=== PATIENT | male | born 1990 | race Caucasian/White ===

== ENCOUNTER 2016-11-03 21:03 | Emergency (ER) | payer OTHER ==
[~2016-11-03] VITALS: Ht 175.3 cm; Wt 78.0 kg
[~2016-11-03 21:03] MED LIST: MELO15TA2 PO; SULF1TAB47 PO; TRAM50 PO; Z.0.NO CURRENT MEDS
[2016-11-03 21:06] VITALS: BP 125/75; PULSE 75; RESP 16; TEMP 98.6; O2SAT 100
--- NOTE | 2016-11-03 21:37 | PD ---
Physical Exam Date Seen by Provider: Nov 03, 2016 Time Seen by Provider: 21:33 Narrative 25 y/o male with Hx of Head injury last evening that he doesnt remember. LOC unknown. Has 9/10 SINGH, confusion, increased dizziness and hypersomnolence. Vomiting x 3 today. Denies Smoking, Etoh or drug use. Fiance' states "eyes twitching all day". V/S stable Awaiting med bed placement. Data Data Last Documented VS Vital Signs Date Time Temp Pulse Resp B/P Pulse Ox O2 Delivery O2 Flow Rate FiO2 11/03/16 21:06 98.6 75 16 125/75 100 MDM Medical Record Reviewed: Yes Supervised Visit with RASHID: Yes Condition: Stable Mohit Frost Nov 03, 2016 21:37
[2016-11-03] MEDS ORDERED: SODIUM CHLOR 0.9% 1000 ML INJ 1,000 ML IV ONE (22:00)
[2016-11-03] MEDS ORDERED: ONDANSETRON HCL 4 MG/2 ML VIAL IV PUSH ONE (22:00)
--- NOTE | 2016-11-03 22:02 | PD ---
HPI Chief Complaint: Head Injury Time Seen by Provider: 22:01 Travel History International Travel<30 days: No Contact w/Intl Traveler<30days: No Traveled to known affect area: No History of Present Illness HPI 25-year-old male presents to the emergency department stating please he had a head injury last night. Patient states he went to a [place] wedding yesterday. He did not return until this morning. He states he remembers the beginning of the wedding, does not remember anything else. He states he remembers driving home and getting home. His fianc says that she was worried because he did not return home until this morning. She states that he has not been acting right, being more lethargic than normal. He has vomited 3 today. She also states he has a nystagmus of his eyes. The patient does have a small abrasion to upper forehead that looks old, however, the fianc says he did not leave with this abrasion. Patient states his vision appears to be more blurry than normal. He does report some upper neck pain. No back pain. No chest pain or abdominal pain. No constipation or diarrhea. He reports no chronic medical problems and takes no prescribed medications. [facility] Past Medical History Asthma: Yes Immunizations Current: No Tetanus Vaccination: < 5 Years Influenza Vaccination: No Past Surgical History Surgical History: No Previous Surgery Social History Alcohol Use: Yes (OCCASIONALLY) Tobacco Use: No Substance Use: No Allergies-Medications (Allergen,Severity, Reaction): Coded Allergies: Morphine (Verified Allergy, Severe, Hives, 01/25/12) Reported Meds & Prescriptions Reported Meds & Active Scripts Active No Active Prescriptions or Reported Medications Review of Systems Except as stated in HPI: all other systems reviewed are Neg Physical Exam Narrative GENERAL: Well-nourished, well-developed male patient, afebrile. SKIN: Focused skin assessment warm/dry. Small healing abrasion to upper mid forehead. HEAD: Normocephalic. ENT: Mucosa pink and moist. No erythema or exudates. No uvular edema. No uvular , palatal, or tonsillar deviation. Airway patent. Nasal turbinates appear normal without nasal blood, purulent drainage or septal hematoma. Bilateral tympanic membranes are clear without erythema or perforation. EYES: No scleral icterus. No injection or drainage. PERRLA. NECK: Supple, trachea midline. No JVD or lymphadenopathy. CARDIOVASCULAR: Regular rate and rhythm without murmurs, gallops, or rubs. RESPIRATORY: Breath sounds equal bilaterally. No accessory muscle use. Lungs sounds are clear to auscultation. GASTROINTESTINAL: Abdomen soft, non-tender, nondistended. MUSCULOSKELETAL: No cyanosis, or edema. Bilateral upper and lower extremity strength 5/5. All extremities are neurovascularly intact. BACK: No obvious deformity. No CVA tenderness. Patient has tenderness over midline cervical spine. Data Data Last Documented VS Vital Signs Date Time Temp Pulse Resp B/P Pulse Ox O2 Delivery O2 Flow Rate FiO2 11/03/16 21:06 98.6 75 16 125/[address] Brain W/O Iv Contrast(Rout) (11/03/16 21:37) Iv Access Insert/Monitor (11/03/16 21:59) Ct Cerv Spine W/O Contrast (11/03/16 ) Apply Cervical Collar (11/03/16 22:00) Complete Blood Count With Diff (11/03/16 22:00) Comprehensive Metabolic Panel (11/03/16 22:00) Prothrombin Time / Inr (Pt) (11/03/16 22:00) Act Partial Throm Time (Ptt) (11/03/16 22:00) Sodium Chlor 0.9% 1000 Ml Inj (Ns 1000 M (11/03/16 22:00) Ondansetron Inj (Zofran Inj) (11/03/16 22:00) Drug Screen, Random Urine (11/03/16 22:02) Alcohol (Ethanol) (11/03/16 22:20) Labs Laboratory Tests Test 11/03/16 22:20 White Blood Count 7.4 TH/MM3 Red Blood Count 4.96 MIL/MM3 Hemoglobin 14.8 GM/DL Hematocrit 42.3 % Mean Corpuscular Volume 85.3 FL Mean Corpuscular Hemoglobin 29.8 PG Mean Corpuscular Hemoglobin 35.0 % Concent Red Cell Distribution Width 13.0 % Platelet Count 181 TH/MM3 Mean Platelet Volume 9.0 FL Neutrophils (%) (Auto) 63.1 % Lymphocytes (%) (Auto) 23.8 % Monocytes (%) (Auto) 8.9 % Eosinophils (%) (Auto) 4.0 % Basophils (%) (Auto) 0.2 % Neutrophils # (Auto) 4.7 TH/MM3 Lymphocytes # (Auto) 1.8 TH/MM3 Monocytes # (Auto) 0.7 TH/MM3 Eosinophils # (Auto) 0.3 TH/MM3 Basophils # (Auto) 0.0 TH/MM3 CBC Comment DIFF FINAL Differential Comment MDM Medical Decision Making Medical Screen Exam Complete: Yes Emergency Medical Condition: Yes Medical Record Reviewed: Yes Interpretation(s) Ct of the cervical spine - CONCLUSION: Unremarkable study. CT of the head - CONCLUSION: Unremarkable study. Differential Diagnosis Closed head injury versus intracranial abnormality versus concussion versus electrolyte abnormality versus alcohol intoxication Narrative Course 25 year old male presents to the emergency department reporting dizziness, loss of memory from last night, vomiting 3. He believes he had head trauma last night, but does not remember. He apparently went to a wedding yesterday and arrived home this morning. CBC, CMP, PTT, PTT/INR, alcohol level, urine drug screen ordered and pending. Cervical collar is applied. CT of the brain and cervical spine are ordered and pending. CBC is unremarkable. CT of the brain is unremarkable. CT of the cervical spine is unremarkable. My attending physician, Dr. Garay, will resume care and disposition of patient. Scripts No Active Prescriptions or Reported Meds Condition: Stable Monica Purcell [place] Nov 03, 2016 22:02
--- NOTE | 2016-11-03 22:16 | RADRPT ---
EXAM DATE/TIME: 11/03/2016 22:05 [facility] COMPARISON: No previous studies available for comparison. INDICATIONS : Contusion. Laceration to forehead. RADIATION DOSE: 36.79 CTDIvol (mGy) MEDICAL HISTORY : Asthma. SURGICAL HISTORY : None. ENCOUNTER: Initial ACUITY: 1 day PAIN SCALE: 7/10 LOCATION: cranial TECHNIQUE: Multiple contiguous axial images were obtained of the head. Using automated exposure control and adj ustment of the mA and/or kV according to patient size, radiation dose was kept as low as reasonably a chievable to obtain optimal diagnostic quality images. FINDINGS: There is no evidence for intracranial hemorrhage, mass effect, mass lesions, edema, or extra-axial fl uid collections. The visualized bony structures appear intact. The ventricles are normal size for t he patient's age. There are no signs of acute infarction for technique. CONCLUSION: Unremarkable study. Nela Gonzalez MD on November 03, 2016 at 22:13 Board Certified Radiologist. This report was verified electronically.
--- NOTE | 2016-11-03 22:31 | RADRPT ---
EXAM DATE/TIME: 11/03/2016 22:05 [facility] COMPARISON: CT CERVICAL SPINE W/O CONTRAST W 3D RECON, January 25, 2012, 12:33. INDICATIONS : Fall, Laceration to forehead. RADIATION DOSE: 21.55 CTDIvol (mGy) MEDICAL HISTORY : Asthma. SURGICAL HISTORY : None. ENCOUNTER: Initial ACUITY: 1 day PAIN SCALE: 2/10 LOCATION: neck TECHNIQUE: Volumetric scanning of the cervical spine was performed. Multiplanar reconstructions in the sagittal, coronal and oblique axial planes were performed. Using automated exposure control and adjustment o f the mA and/or kV according to patient size, radiation dose was kept as low as reasonably achievable to obtain optimal diagnostic quality images. FINDINGS: No significant subluxation or soft tissue swelling is seen. No definite fracture is seen for techniqu e. C2-C3: No appreciable compromised to the thecal sac, exiting nerve roots are seen. The neural jamaal eric are patent bilaterally. No appreciable thecal sac stenosis is seen. C3-C4: No appreciable compromised to the thecal sac, exiting nerve roots are seen. The neural jamaal eric are patent bilaterally. No appreciable thecal sac stenosis is seen. C4-C5: No appreciable compromised to the thecal sac, exiting nerve roots are seen. The neural jamaal eric are patent bilaterally. No appreciable thecal sac stenosis is seen. C5-C6: No appreciable compromised to the thecal sac, exiting nerve roots are seen. The neural jamaal eric are patent bilaterally. No appreciable thecal sac stenosis is seen. C6-C7: No appreciable compromised to the thecal sac, exiting nerve roots are seen. The neural jamaal eric are patent bilaterally. No appreciable thecal sac stenosis is seen. C7-T1: No appreciable compromised to the thecal sac, exiting nerve roots are seen. The neural jamaal eric are patent bilaterally. No appreciable thecal sac stenosis is seen CONCLUSION: Unremarkable study. Nela Gonzalez MD on November 03, 2016 at 22:27 Board Certified Radiologist. This report was verified electronically.
[2016-11-03 22:42] LABS: AUTOMATED NEUTROPHIL # 4.7 TH/MM3 (1.8-7.7); BASOPHIL % 0.2 % (0.0-2.0); EOSINOPHIL # 0.3 TH/MM3 (0-0.4); HEMATOCRIT 42.3 % (39.0-51.0); HEMO FLAGS DIFF FINAL; LYMPH % 23.8 % (9.0-44.0); LYMPHOCYTE # 1.8 TH/MM3 (1.0-4.8); MEAN CELL VOLUME 85.3 FL (80.0-100.0); MEAN CORPUSCULAR HEMOGLOBIN 29.8 PG (27.0-34.0); MONO % 8.9 % (0.0-8.0); NEUT % 63.1 % (16.0-70.0); PLATELET COUNT 181 TH/MM3 (150-450); RED BLOOD COUNT 4.96 MIL/MM3 (4.50-5.90); WHITE BLOOD COUNT 7.4 TH/MM3 (4.0-11.0)
[2016-11-03 22:57] LABS: ALT (GPT) 32 U/L (12-78); ANION GAP 8 MEQ/L (5-15); AST (GOT) 31 U/L (15-37); BICARBONATE 27.2 MEQ/L (21.0-32.0); BLOOD UREA NITROGEN 15 MG/DL (7-18); CHLORIDE 106 MEQ/L (98-107); GLOMERULAR FILTRATION RATE 103 ML/MIN (>89); POTASSIUM 3.9 MEQ/L (3.5-5.1); SODIUM (NA) 141 MEQ/L (136-145)
[2016-11-03 22:59] LABS: ALKALINE PHOSPHATASE 64 U/L (45-117); TOTAL BILIRUBIN ADULT 0.4 MG/DL (0.2-1.0)
[2016-11-03 23:00] LABS: PROTHROMBIN TIME - PATIENT 10.7 SEC (9.8-11.6)
[2016-11-04 01:08] LABS: AMPHETAMINE, URINE NEG (NEG); BARBITURATES, URINE NEG (NEG); COCAINE, URINE NEG (NEG)
[2016-11-04] MEDS ORDERED: ZOFR4TAB3 SL (01:20)
--- NOTE | 2016-11-04 01:20 | PD ---
Physical Exam Date Seen by Provider: November 04, 2016 Time Seen by Provider: 00:00 Narrative Case is signed out to me by NAYE, please see PA note for further details. Awaiting lab work. CT of the brain and C-spine is negative. I suspect underlying concussion for this patient. Laboratory Tests Test 11/03/16 22:20 Monocytes (%) (Auto) 8.9 % (0.0-8.0) Lab work did not show any signs of electrolyte abnormalities. Vital signs are stable in the ER. At this point, patient was reevaluated at 1 AM and is still having some dizziness but otherwise has had no further vomiting and is doing well. My plan would be to release him with follow-up to primary care physician. Return for any worsening in symptoms as necessary. Head injury instructions given. Patient is released with girlfriend. The plan was discussed with the patient and he states understanding. Data Data Last Documented VS Vital Signs Date Time Temp Pulse Resp B/P Pulse Ox O2 Delivery O2 Flow Rate FiO2 11/03/16 21:06 98.6 75 16 125/[address] Brain W/O Iv Contrast(Rout) (11/03/16 21:37) Iv Access Insert/Monitor (11/03/16 21:59) Ct Cerv Spine W/O Contrast (11/03/16 ) Apply Cervical Collar (11/03/16 22:00) Complete Blood Count With Diff (11/03/16 22:00) Comprehensive Metabolic Panel (11/03/16 22:00) Prothrombin Time / Inr (Pt) (11/03/16 22:00) Act Partial Throm Time (Ptt) (11/03/16 22:00) Sodium Chlor 0.9% 1000 Ml Inj (Ns 1000 M (11/03/16 22:00) Ondansetron Inj (Zofran Inj) (11/03/16 22:00) Drug Screen, Random Urine (11/03/16 22:02) Alcohol (Ethanol) (11/03/16 22:20) Labs Laboratory Tests Test 11/03/16 11/04/16 22:20 00:45 White Blood Count 7.4 TH/MM3 Red Blood Count 4.96 MIL/MM3 Hemoglobin 14.8 GM/DL Hematocrit 42.3 % Mean Corpuscular Volume 85.3 FL Mean Corpuscular Hemoglobin 29.8 PG Mean Corpuscular Hemoglobin 35.0 % Concent Red Cell Distribution Width 13.0 % Platelet Count 181 TH/MM3 Mean Platelet Volume 9.0 FL Neutrophils (%) (Auto) 63.1 % Lymphocytes (%) (Auto) 23.8 % Monocytes (%) (Auto) 8.9 % Eosinophils (%) (Auto) 4.0 % Basophils (%) (Auto) 0.2 % Neutrophils # (Auto) 4.7 TH/MM3 Lymphocytes # (Auto) 1.8 TH/MM3 Monocytes # (Auto) 0.7 TH/MM3 Eosinophils # (Auto) 0.3 TH/MM3 Basophils # (Auto) 0.0 TH/MM3 CBC Comment DIFF FINAL Differential Comment Prothrombin Time 10.7 SEC Prothromb Time International 1.0 RATIO Ratio Activated Partial 27.0 SEC Thromboplast Time Sodium Level 141 MEQ/L Potassium Level 3.9 MEQ/L Chloride Level 106 MEQ/L Carbon Dioxide Level 27.2 MEQ/L Anion Gap 8 MEQ/L Blood Urea Nitrogen 15 MG/DL Creatinine 0.89 MG/DL Estimat Glomerular Filtration 103 ML/MIN Rate Random Glucose 98 MG/DL Calcium Level 8.9 MG/DL Total Bilirubin 0.4 MG/DL Aspartate Amino Transf 31 U/L (AST/SGOT) Alanine Aminotransferase 32 U/L (ALT/SGPT) Alkaline Phosphatase 64 U/L Total Protein 7.1 GM/DL Albumin 4.1 GM/DL Ethyl Alcohol Level LESS THAN 3 MG/DL Urine Opiates Screen NEG Urine Barbiturates Screen NEG Urine Amphetamines Screen NEG Urine Benzodiazepines Screen NEG Urine Cocaine Screen NEG Urine Cannabinoids Screen NEG MDM Medical Record Reviewed: Yes Supervised Visit with RASHID: Yes Diagnosis Primary Impression: Concussion Med/Other Pt SpecificInfo: Prescription(s) given Scripts Ondansetron Odt (Zofran Odt)4 Mg Tab4 Mg SL Q6HR PRN (Nausea/Vomiting) #7 TAB Ref 0 Prov:Shasta Garay MD 11/04/16 Disposition: 01 DISCHARGE HOME Condition: Stable Shasta Garay MD November 04, 2016 01:20
[2016-11-04 01:50] VITALS: BP 122/71
[2016-12-03] MEDS ORDERED: REGL10TA5 PO (19:26)
[2016-12-12] MEDS ORDERED: PROP20TA3 PO (02:28)
[2016-12-12] MEDS ORDERED: MEDR4PAK PO (02:28)
== END 2016-11-04 01:57 | disposition home or self-care (01) ==
LOC: EDBD → NEPC 21:03
DX: S06.0X9A Concussion with loss of consciousness of unspecified duration, initial encounter (principal); M54.2 Cervicalgia; X58.XXXA Exposure to other specified factors, initial encounter
CPT/HCPCS: 70450; 72125; 80053; 80307; 85025; 85610; 85730; 96374; 99284; J2405; J7030